=== PATIENT | male | born 1970 | race Caucasian/White ===

== ENCOUNTER 2018-08-13 08:46 | Day surgery (SDC) | payer OTHER ==
[2018-08-12 13:39] VITALS: BMI 23.6
[2018-08-13] MEDS ORDERED: Lidocaine 1% PF 5 ML VIAL ONE (11:54)
[2018-08-13] MEDS ORDERED: Dexamethasone 20 MG/5 ML VIAL ONE (11:54)
[2018-08-13] MEDS ORDERED: PROPOFOL 200 MG/20 ML VIAL ONE (11:54)
[2018-08-13] MEDS ORDERED: Ondansetron PF 4 MG/2 ML Vial ONE (11:54)
[2018-08-13] MEDS ORDERED: Glycopyrrolate 0.2 MG/ML 5 ML SYRINGE ONE (11:54)
[2018-08-13] MEDS ORDERED: Bupivacaine/Epinephrine 0.25% 30 ML VIAL ONE (12:11)
[2018-08-13] MEDS ORDERED: Fentanyl 100 MCG/2 ML VIAL ONE ×3 (12:16→13:42)
[2018-08-13] MEDS ORDERED: Midazolam HCl 2 mg/2 ml Vial ONE (12:16)
[2018-08-13] MEDS ORDERED: Hydrocodone-Acetamin 15 ML UDCUP ONE (14:32)
--- NOTE | 2018-08-14 06:50 | OP ---
DATE OF PROCEDURE: 08/13/2018 PREOPERATIVE DIAGNOSIS: Uvular lesion. POSTOPERATIVE DIAGNOSIS: Primary squamous cell carcinoma of the uvula. PROCEDURES PERFORMED: 1. Uvulectomy. 2. Tonsillectomy. 3. Partial resection of the soft palate. 4. Direct laryngoscopy. PROCEDURE IN DETAIL: After consent was obtained, the patient was identified, brought to the operating room, and placed on the operating table in supine position. General endotracheal anesthesia was obtained. The patient underwent systematical positioning of systematic laryngoscopy and on examination of the oropharynx and oral cavity, the abnormality seemed to be limited just to the uvula and its junction at the soft palate. We then proceeded with making vertical incision in the soft palate, grasping the palate and retracting it anteriorly. We then, with a Douglas tip, transected approximately 0.5 cm margin from the lesion and transected the posterior aspect of the soft palate. We then connected that with the anterior portion and excised the tumor and sent it for histologic evaluation. In order to close the wound and have a more functional palate, we proceeded with removing the tonsils and a crescentic portion of the posterior tonsillar pillar mucosa. This allowed for recreation of the uvula and widened the pharyngeal passage. Hemostasis was then obtained. The area was infiltrated with Marcaine 0.25% with 1:100,000 epinephrine, and the patient was awakened and taken to recovery room in stable condition prior to discharge home. Job ID: [id number]
--- NOTE | 2018-08-14 18:51 | EKG ---
Test Reason : PREOP Blood Pressure : / mmHG Vent. Rate : 064 BPM Atrial Rate : 064 BPM P-R Int : 152 ms QRS Dur : 110 ms QT Int : 386 ms P-R-T Axes : 076 050 032 degrees QTc Int : 398 ms Sinus rhythm with Premature atrial complexes Otherwise normal ECG No previous ECGs available Confirmed by Nelly VANCE ([id number]) on 08/14/2018 6:51:01 PM Referred By: KHRIS Confirmed By:Nelly VANCE
== END 2018-08-13 15:26 | disposition home or self-care (01) ==
LOC: SDC 08:46
PROVIDERS: ATTEND Specialist
DX: C05.2 Malignant neoplasm of uvula (principal); J35.1 Hypertrophy of tonsils; E78.00 Pure hypercholesterolemia, unspecified; G40.909 Epilepsy, unspecified, not intractable, without status epilepticus; Z79.899 Other long term (current) drug therapy
CPT/HCPCS: 88304; 88305; 88331; 93005; 93010; 96374; J1100; J2001; J2250; J2405; J2704; J3010

== ENCOUNTER 2018-11-30 16:27 | Inpatient (IN) | payer OTHER ==
[2018-11-30] MEDS ORDERED: GASTROGRAFIN 30 ML BOT ONE (17:27)
[2018-11-30] MEDS ORDERED: Morphine 4 MG/ML VIAL ONE (22:45)
[2018-11-30] MEDS ORDERED: Clindamycin/D5W 600 mg/50 ml Premix Bag ONE (22:45)
[2018-11-30] MEDS ORDERED: Dexamethasone 10 MG/ML VIAL ONE (22:45)
[2018-11-30] MEDS ORDERED: Ondansetron PF 4 MG/2 ML Vial ONE (22:45)
[2018-11-30 23:02] LABS: Hemoglobin 10.8 g/dL (14.0-18.0); Mean Corpuscular HGB CONC 32.7 g/dL (32.0-36.0); Mean Corpuscular Hemoglobin 32.2 pg (27.0-31.0); Mean Corpuscular Volume 98.5 fL (78.0-98.0); Platelet Count 380 thou/uL (130-400); RBC Distribution Width 11.3 % (11.5-14.5); Red Blood Cell (RBC) Count 3.34 mill/uL (4.70-6.10)
[2018-11-30 23:21] LABS: ALT (SGPT) 27 U/L (8-55); AST (SGOT) 20 U/L (5-34); Albumin 3.5 g/dL (3.5-5.0); Alkaline Phosphatase 84 U/L (40-150); Anion Gap 13 mmol/L (10-20); BUN (Urea Nitrogen) 18 mg/dL (8.9-20.6); Bilirubin, Total 0.4 mg/dL (0.2-1.2); Calc. Creatinine Clearance 0 mL/min (70-130); Calcium 10.7 mg/dL (7.8-10.44); Carbon Dioxide 32 mmol/L (22-29); Chloride 92 mmol/L (98-107); Estimated GFR-MDRD Greater than 90; Globulin 4.6 g/dL (2.4-3.5); Glucose 120 mg/dL (70-105); Potassium 4.3 mmol/L (3.5-5.1); Protein, Total 8.1 g/dL (6.0-8.3); Sodium 133 mmol/L (136-145)
[2018-11-30 23:29] LABS: Hypochromia SLIGHT = 6-15 cells (100X) (0-5/hpf); Lymphocytes 10 % (21-51); MDiff Complete? YES; Monocytes 6 % (0-10); Neutrophil 84 % (42-75); Platelet Morphology Comment Appears Adequate
--- NOTE | 2018-11-30 23:59 | RAD ---
ABDOMEN ONE VIEW: History: Reposition of PEG tube. FINDINGS: Single frontal view of the upper abdomen shows contrast material within the stomach. Radiopaque nargis ter and balloon overlie the gastric body. There is no evidence of leakage of contrast. POS: [facility]
[2018-12-01] MEDS ORDERED: HYDROcodone/Acetaminophen 5/325 mg Tablet PO PRN ×2 (04:04)
[2018-12-01] MEDS ORDERED: Acetaminophen 325 MG TAB PO PRN (04:04)
[2018-12-01] MEDS ORDERED: Ondansetron ODT 4 MG TAB SL PRN (04:04)
[2018-12-01] MEDS ORDERED: Ondansetron PF 4 MG/2 ML Vial IVP PRN ×2 (04:04→06:45)
[2018-12-01] MEDS ORDERED: Scopolamine 1.5 mg/72 hour Patch TOP SCH (05:00)
[2018-12-01] MEDS: Dextrose 5 %-0.45 % NaCl 1,000 ML IV SCH ×2 (05:02→16:43)
[2018-12-01] MEDS: Morphine 4 MG/ML VIAL SLOW IVP PRN ×4 (05:04→17:53)
[2018-12-01] MEDS ORDERED: Acetaminophen 650 MG/20.3 ML UDCUP PER TUBE PRN (06:45)
[2018-12-01] MEDS ORDERED: HYDROcodone/Acetaminophen 5/325 mg Tablet PER TUBE PRN (06:45)
[2018-12-01] MEDS ORDERED: hydrALAZINE 20 MG/ML VIAL SLOW IVP PRN (06:45)
[2018-12-01] MEDS ORDERED: Ondansetron ODT 4 MG TAB PER TUBE PRN (06:45)
--- NOTE | 2018-12-01 07:00 | HP ---
PRIMARY CARE PHYSICIAN: Dr. Silvestre Rajput in [place], [place]. ONCOLOGIST: Dr. Yovanny Langley. CUSTOMER SERVICE VOICE: Dr. Rock. CHIEF COMPLAINT: Severe pain in the throat and jaw, and left-sided ear pain. HISTORY OF PRESENT ILLNESS: Mr. Costello is a 48-year-old gentleman who initially was diagnosed with tongue cancer and then recently was found to have a tumor on the uvula and the tonsils and he is post uvulectomy. He has noticed increasing pain in his throat and jaw and he has been followed by Dr. Rock and Dr. Rock recommended that he come to the hospital for admission. He was concerned that the patient's airway may be becoming compromised and he was also concerned that the patient may have an infection in the throat due to odor from the patient's mouth. The patient currently is not able to add much to the history as he has difficulty with speech as a result of the swelling and enlargement of the tongue. He indicates pain primarily in the left ear and the left side of the neck. His mother, who was at the bedside, said he did have a low-grade temperature of 99.7 and noticed that he has been having some night sweats recently. He also had indicated some pain in his PEG tube, but that has actually improved since he has been in the hospital. He has had no nausea, no vomiting, and no diarrhea and essentially, the pain is localized to the head and neck region. No chest pain. No shortness of breath, etc. REVIEW OF SYSTEMS: All systems were reviewed and are negative except for that mentioned in the history of present illness. PAST MEDICAL HISTORY: Significant for tongue cancer and cancer of the uvula and the tonsils as well as seizures, mood disorder, and organic brain injury. PAST SURGICAL HISTORY: He has had a PEG tube placed in 11/12, MediPort placed and uvula and tonsils removed. ALLERGIES: TO PENICILLIN. HE AND THE MOTHER UNSURE WHAT THE REACTION IS. SOCIAL HISTORY: He is single. He has 1 child, who is estranged. He is a former smoker. He had smoked half a pack to a pack a day for at least 25 years. He also used to drink alcohol heavily, but has since quit and when asked about code status, he stated he would want to be a full code and he indicated this by nodding his head. FAMILY HISTORY: Significant for colon cancer in his grandmother. Mother has significant polyposis. CURRENT MEDICATIONS: Include; 1. Phenytoin 100 mg three times a day that is extended release. 2. Phenytoin 30 mg twice a day. 3. Atorvastatin 80 mg at bedtime. PHYSICAL EXAMINATION: GENERAL: He is alert and oriented to person, place, and time. He is well developed and well nourished. He does not appear to be in any acute distress. VITAL SIGNS: Blood pressure was 120/69, heart rate 96, respiratory rate of 18, and temperature is 97.7. HEENT: Pupils are equal, round, and reactive. Extraocular muscles are intact. Sclerae anicteric. Throat, he does have some enlargement of the tongue and some white plaque-like lesions on the tongue. Poor dentition. He did have some submandibular adenopathy. LUNGS: Clear to auscultation. There is no wheezing, no rales, no rhonchi. CARDIOVASCULAR: He has normal S1 and S2. There is no S3 or S4. No murmurs, clicks, or rubs. ABDOMEN: Soft. It is nontender and nondistended. Positive for bowel sounds. No rebound, no guarding. EXTREMITIES: There is no clubbing, cyanosis, no edema. NEUROLOGIC: The exam is grossly nonfocal. LAB RESULTS: White blood cell count 13, hemoglobin 10.8, hematocrit is 32.9, and platelet count is 380. Sodium 133, potassium 4.3, chloride is 92, CO2 is 32, BUN of 18, creatinine 0.78, glucose is 120, and calcium is 10.7. ASSESSMENT AND PLAN: 1. This is a 48-year-old gentleman who presents with worsening pain in his throat with concern for possible impingement on his airway and there is also concern for possible oropharyngeal infection. On exam, there was no stridor and he appears to be breathing comfortably. We will go ahead and place him in observation. Continue IV antibiotics and clindamycin, seems reasonable given the location. Continue IV Decadron and Dr. Rock will be consulted for further recommendations going forward. 2. For seizure disorder, continue his Dilantin as ordered as well as seizure precautions and IV Ativan will be available and he will be placed on deep venous thrombosis and gastrointestinal prophylaxis. Job ID: [id number]
[2018-12-01] MEDS: Clindamycin/D5W 600 MG in Premix Bag 1 BAG IVPB SCH ×3 (09:01→20:34)
[2018-12-01] MEDS: Pantoprazole 40 MG VIAL IVP SCH (09:05)
[2018-12-01] MEDS: Enoxaparin Sodium 40 MG/0.4 ML SYRINGE SC SCH (09:07)
[2018-12-01 10:14] LABS: #Lymphocytes 0.5 thou/uL (1.20-3.40); #Monocytes 0.2 thou/uL (0.11-0.59); #Neutrophils 9.5 thou/uL (1.40-6.50); %Basophils 0.1 % (0.0-1.0); %Eosinophils 0.1 % (0.0-10.0); %Lymphocytes 5.3 % (21.0-51.0); %Monocytes 2.1 % (0.0-10.0); %Neutrophils 92.5 % (42.0-75.0); Hemoglobin 10.5 g/dL (14.0-18.0); Mean Corpuscular HGB CONC 32.4 g/dL (32.0-36.0); Mean Corpuscular Hemoglobin 31.7 pg (27.0-31.0); Mean Corpuscular Volume 97.9 fL (78.0-98.0); Mean Platelet Volume 6.2 fL (7.4-10.4); Platelet Count 391 thou/uL (130-400); RBC Distribution Width 11.2 % (11.5-14.5); Red Blood Cell (RBC) Count 3.33 mill/uL (4.70-6.10); White Blood Cell (WBC) Count 10.3 thou/uL (4.8-10.8)
[2018-12-01 10:33] LABS: Anion Gap 15 mmol/L (10-20); BUN (Urea Nitrogen) 19 mg/dL (8.9-20.6); Calc. Creatinine Clearance 109 mL/min (70-130); Calcium 10.5 mg/dL (7.8-10.44); Carbon Dioxide 29 mmol/L (22-29); Chloride 95 mmol/L (98-107); Estimated GFR-MDRD Greater than 90; Glucose 154 mg/dL (70-105); Potassium 4.4 mmol/L (3.5-5.1); Sodium 135 mmol/L (136-145)
--- NOTE | 2018-12-01 17:41 | PRG ---
DATE OF SERVICE: 12/01/2018 SUBJECTIVE: Mr. Costello is an unfortunate 48-year-old male with past medical history significant for recently diagnosed squamous cell carcinoma of the tongue and uvula, status post uvulectomy, tonsillectomy, and pharyngeal reconstruction in August of 2018. He has presented to the hospital at the behest of his oncologist, Dr. Yovanny Langley, who saw him in Outpatient Clinic yesterday , and was concerned about soft tissue swelling possibly compromising his airway along with possible infections in his mouth. The patient has been admitted, and was seen by Dr. Rock's PA this morning. The plan is for trach placement tomorrow. The patient at this time continues to complain of chronic pain in his mouth and tongue, however, this is non-worsening. He denies any fever or chills at this time. His mother is at bedside and does provide some of the history, who states that his present condition has remained fairly stable over the past 2 weeks regarding the sores in his mouth. He does have a PEG tube, which she reports he has no pain from this morning. The patient denies chest pain and shortness of breath as well. OBJECTIVE: VITAL SIGNS: Blood pressure 129/74, temperature is 96.6, pulse is 84, respirations are 20, O2 saturation is 96%. GENERAL: This is a very thin male, resting in bed. He is in no respiratory or acute distress at this time. He is alert and oriented x3. HEENT: His head is atraumatic and normocephalic. Upon examination of his mouth , he does have some enlargement of his tongue as well as some plaque like white lesions. Submandibular lymphadenopathy is noted as well. LUNGS: Regular respiratory rate and pattern. Clear to auscultation bilaterally. CV: S1 and S2. Regular rate and rhythm. No appreciable murmurs, rubs, or gallops. ABDOMEN: Soft and nontender. PEG tube is present with sutures in place. EXTREMITIES: There is no edema. +2 DP pulses bilaterally. NEUROLOGIC: The patient is nonfocal. LABORATORY RESULTS: White blood cell count 10.3, hemoglobin 10.5, hematocrit 32.6. Sodium 135, potassium 4.4, creatinine 0.79, calcium 10.5. Liver function tests within normal limits. ASSESSMENT: 1. Squamous cell carcinoma of the tongue and uvula, status post uvulectomy, tonsillectomy, and soft palate reconstruction in August of [address] Rock, currently undergoing radiation. 2. Soft tissue swelling of the tongue and pharynx secondary to above with some concern for infection as well as airway compromise. 3. Seizure disorder, stable. 4. Hyperlipidemia. PLAN: At this time, we will continue empiric IV antibiotic coverage with clindamycin IV. The patient at this time appears nontoxic. He is afebrile. He has no white count. N p.o. after midnight for trach placement tomorrow. We will await further recommendations from his ENT physician as well as his oncologist. Care discussed with Dr. More. Job ID: [id number] [facility]ITAL[facility]
[2018-12-01] MEDS: HYDROcodone/Acetaminophen 5/325 mg Tablet PER TUBE PRN (20:33)
[2018-12-01] MEDS: Atorvastatin Calcium 40 MG TAB PER TUBE SCH (20:34)
--- NOTE | 2018-12-01 22:32 | PRG ---
DATE OF SERVICE: SUBJECTIVE: Mr. Costello presented to the emergency room yesterday at the instruction of Dr. Langley at [facility] and came consulting with Dr. Rock. The patient is in need of a tracheostomy to continue with cancer treatments, but there was fear that there was a slight throat infection that needed to be treated. Mr. Costello therefore checked himself through the ER and was admitted to the cancer unit where he has been receiving both IV clindamycin and steroids. Overall, he is doing okay. He has been n.p.o. since arriving while awaiting to see when the tracheotomy could be performed. OBJECTIVE: Mr. Costello is well developed, well nourished. He is in no acute distress. He is still having some difficulty swallowing secondary to the cancer in his tongue. PEG tube is in place. Continues to receive IV antibiotics and steroids. ASSESSMENT: 1. Tracheal infection. 2. Carcinoma of the tongue. PLAN: 1. The patient is okay to eat right now, but needs to be n.p.o. after midnight. 2. Continue with IV antibiotics and steroids as directed by Dr. Rock. 3. Tracheotomy to be performed tomorrow, Friday, 12/02 in a.m. Job ID: [id number]
[2018-12-02] MEDS: Clindamycin/D5W 600 MG in Premix Bag 1 BAG IVPB SCH ×4 (01:57→20:14)
[2018-12-02] MEDS: Dextrose 5 %-0.45 % NaCl 1,000 ML IV SCH (01:57)
[2018-12-02] MEDS: Morphine 4 MG/ML VIAL SLOW IVP PRN ×3 (02:00→11:00)
[2018-12-02 05:09] LABS: #Eosinphils 0.1 thou/uL (0.0-0.7); #Lymphocytes 1.3 thou/uL (1.20-3.40); #Monocytes 1.2 thou/uL (0.11-0.59); #Neutrophils 11.3 thou/uL (1.40-6.50); %Basophils 0.2 % (0.0-1.0); %Eosinophils 0.5 % (0.0-10.0); %Lymphocytes 9.1 % (21.0-51.0); %Monocytes 8.3 % (0.0-10.0); %Neutrophils 81.8 % (42.0-75.0); Hemoglobin 9.9 g/dL (14.0-18.0); Mean Corpuscular HGB CONC 32.7 g/dL (32.0-36.0); Mean Corpuscular Hemoglobin 32.3 pg (27.0-31.0); Mean Corpuscular Volume 98.9 fL (78.0-98.0); Mean Platelet Volume 6.6 fL (7.4-10.4); Platelet Count 399 thou/uL (130-400); RBC Distribution Width 11.2 % (11.5-14.5); Red Blood Cell (RBC) Count 3.05 mill/uL (4.70-6.10); White Blood Cell (WBC) Count 13.8 thou/uL (4.8-10.8)
[2018-12-02 05:15] LABS: Anion Gap 13 mmol/L (10-20); BUN (Urea Nitrogen) 20 mg/dL (8.9-20.6); Calc. Creatinine Clearance 132 mL/min (70-130); Calcium 9.9 mg/dL (7.8-10.44); Carbon Dioxide 33 mmol/L (22-29); Chloride 94 mmol/L (98-107); Estimated GFR-MDRD Greater than 90; Glucose 97 mg/dL (70-105); Potassium 3.9 mmol/L (3.5-5.1); Sodium 136 mmol/L (136-145)
[2018-12-02] MEDS ORDERED: Fentanyl 100 MCG/2 ML VIAL ONE (06:27)
[2018-12-02] MEDS ORDERED: Midazolam HCl 2 mg/2 ml Vial ONE (06:27)
[2018-12-02] MEDS ORDERED: Lidocaine 1% w/Epinephrine 1:100K 20 ML VIAL ONE (06:42)
[2018-12-02] MEDS ORDERED: Clindamycin/D5W 600 mg/50 ml Premix Bag ONE (06:54)
[2018-12-02] MEDS ORDERED: Lidocaine 4% PF 5 ML AMP NEB SCH (07:00)
[2018-12-02] MEDS ORDERED: Lidocaine 4% Topical Sol 50 ML BOT ONE (07:01)
[2018-12-02] MEDS ORDERED: Bupivacaine/Epinephrine 0.25% 30 ML VIAL ONE (07:21)
[2018-12-02] MEDS: Enoxaparin Sodium 40 MG/0.4 ML SYRINGE SC SCH (10:30)
--- NOTE | 2018-12-02 10:30 | OP ---
DATE OF PROCEDURE: 12/02/2018 PREOPERATIVE DIAGNOSES: 1. Upper airway obstruction. 2. Advanced anterior tongue cancer. POSTOPERATIVE DIAGNOSES: 1. Upper airway obstruction. 2. Advanced anterior tongue cancer. PROCEDURE PERFORMED: Tracheostomy. BRIEF HISTORY: Yasmany Costello is a 48-year-old gentleman with a history of uvular cancer and locally advanced tongue cancer, who is currently having difficulty undergoing tolerating his radiation by Dr. Langley and due to upper airway obstruction, the request was made that we proceed with a tracheostomy to facilitate radiation therapy. PROCEDURE IN DETAIL: After consent was obtained, the patient was identified and brought to the OR and placed on the operating room table in supine position. General endotracheal anesthesia was obtained via a GlideScope and the patient was positioned for surgery. The neck was prepped and draped and extended and the area of an anticipated incision was infiltrated with 0.25% Marcaine with 1:100,000 epinephrine. We then delineated the topical anatomy and made an elliptical incision in the lower part of his neck and carried the skin incision through the skin, subcutaneous tissues, and platysma. Strap muscles were identified and divided in the midline as was the thyroid isthmus. Dissection then revealed the pretracheal plane. The thyroid rings were identified and the 3rd anterior tracheal ring space was delineated and then cauterized superficially. The trachea was then entered. An inferior-based flap was created and suture secured to the skin. The #6 tracheostomy tube was then placed easily and suture secured to the skin. The ventilating apparatus was connected to that and the cuff was inflated. We then put the tracheal collar on and awakened the patient and transferred him to the ICU, where he remained in stable condition prior to transfer to the floor. Job ID: [id number]
[2018-12-02] MEDS: Sodium Chloride 0.9% (PF) 10 ML VIAL FS PRN (10:55)
[2018-12-02] MEDS: Pantoprazole 40 MG VIAL IVP SCH (10:55)
--- NOTE | 2018-12-02 11:03 | CON ---
DATE OF CONSULTATION: 12/02/2018 SERVICE: Pulmonary Medicine. REASON FOR CONSULT: ICU patient. HISTORY OF PRESENT ILLNESS: The patient is a 48-year-old white male with past medical history significant for head and neck cancer. Because of advancing cancer, he was having a hard time with his breathing and swallowing. He underwent an elective tracheostomy. Previously, he had a PEG tube placed. He is currently in his usual state of health, recovering from the tracheostomy. He has some local inflammation and discomfort at the surgical sites including the PEG tube and the tracheostomy. Otherwise, he has no specific complaints. He denies any current fevers, chills, nausea, vomiting, or diarrhea. Previously, he was an observation patient, but because of the required inpatient procedure, he has been escalated to an inpatient. PAST MEDICAL HISTORY: 1. Squamous cell carcinoma of the tongue and uvula and tonsils. 2. Seizure disorder. 3. Mood disorder. PAST SURGICAL HISTORY: 1. PEG tube placed in 2006. 2. MediPort. 3. Tracheostomy, postop day 0. SOCIAL HISTORY: He has a remote history of smoking. He had a history of heavy alcohol abuse. Denies any street drugs. He has no exposure to chemicals, dust, asbestos, or tuberculosis. FAMILY HISTORY: Noncontributory. ALLERGIES: PENICILLIN. MEDICATIONS: List of his inpatient medications was reviewed. No specific updates were made. REVIEW OF SYSTEMS: General; head, ears, eyes, nose, and throat; cardiovascular; respiratory; GI; ; musculoskeletal; neurologic; and skin are negative except as mentioned in the HPI. PHYSICAL EXAMINATION: VITAL SIGNS: Afebrile, pulse 76, blood pressure 151/82, respirations 14, and saturation 99% on room air. GENERAL: The patient is awake and alert, in no apparent distress. HEENT: There is a fresh tracheostomy with dried blood there. Normocephalic, atraumatic. Sclerae are white. Conjunctivae are pink. LUNGS: Excellent air entry. Slightly prolonged expiratory phase, but no wheezing is present. Rhonchi is there, but clear with cough. HEART: Normal rate, regular. ABDOMEN: Soft, nontender, and nondistended. Bowel sounds are positive. MUSCULOSKELETAL: No cyanosis or clubbing. No pitting in bilateral lower extremities. NEUROLOGIC: Grossly nonfocal. LABORATORY DATA: WBC 13.8, hemoglobin 9.9, and platelets 399,000. Basic metabolic profile is essentially unremarkable with bicarb of 33. Previous liver function studies were unremarkable. Calcium 9.9 and downtrending. ASSESSMENT: 1. Squamous cell carcinoma of the head and neck. 2. Tracheostomy, postop day 0. 3. History of percutaneous endoscopic gastrostomy tube placement. DISCUSSION AND PLAN: The patient will be observed in the ICU for 24 hours. If he remains stable, he will be transitioned to the floor. As long as he remains in the ICU, Pulmonary will continue to follow. We will give him some gentle hydration. Tube feeds will be resumed. A routine tracheostomy care will be performed. 70 minutes have been devoted to this patient in various activities. I personally reviewed all imaging studies and laboratory data noted within this document. For fifty percent of this time, I was interacting with the patient at the bedside or coordinating care with the care team. For the remainder of the time I was immediately available to the patient in the hospital unit. Job ID: [id number] MTDD
[2018-12-02] MEDS ORDERED: Lidocaine 2% Jelly 5 ML TUBE ONE (11:11)
[2018-12-02] MEDS: D5 1/2 NS w/20 mEq KCL 1,000 ML IV SCH ×2 (11:55→23:37)
[2018-12-02] MEDS: HYDROcodone/Acetaminophen 5/325 mg Tablet PER TUBE PRN ×2 (12:41→22:37)
[2018-12-02] MEDS ORDERED: Ondansetron PF 4 MG/2 ML Vial ONE (16:29)
[2018-12-02] MEDS ORDERED: Lidocaine 1% PF 5 ML VIAL ONE (16:29)
[2018-12-02] MEDS ORDERED: PROPOFOL 200 MG/20 ML VIAL ONE (16:29)
[2018-12-02] MEDS ORDERED: Succinylcholine Chloride 20 MG/ML 10 ml SYRINGE FS ONE (16:29)
[2018-12-02] MEDS ORDERED: Dexamethasone 20 MG/5 ML VIAL ONE (16:29)
[2018-12-02] MEDS: Lorazepam 2 MG/ML VIAL SLOW IVP PRN (20:13)
[2018-12-02] MEDS: Atorvastatin Calcium 40 MG TAB PER TUBE SCH (20:16)
--- NOTE | 2018-12-02 20:47 | PRG ---
DATE OF SERVICE: 12/02/2018 SUBJECTIVE: Mr. Costello is a 48-year-old male with past medical history significant for recently diagnosed squamous cell carcinoma of the tongue and uvula, status post uvulectomy, tonsillectomy, and pharyngeal reconstruction in August 2018. He has presented to the hospital at the behest of his oncologist, Dr. Yovanny Langley, who saw me in outpatient clinic and was concerned about soft-tissue swelling compromising his airway along with possible oral infections. The patient is seen in the ICU this morning, status post tracheostomy with Dr. Rock. The patient is breathing very easily. He denies any pain or discomfort at this time. OBJECTIVE: VITAL SIGNS: Blood pressure 120/70; temperature is afebrile; pulse is 60s, sinus; O2 saturation is currently 97%. GENERAL: This is a very thin male, resting in bed in the ICU. He is in no respiratory distress. Alert and oriented x3. HEENT: His head is atraumatic and normocephalic. Upon examination of mouth, he has an enlargement of his tongue and some plaque-like white lesions. LYMPHATIC: Submandibular lymphadenopathy noted. LUNGS: Regular respiratory rate and pattern. Clear to auscultation bilaterally. CV: S1 and S2. Regular rate and rhythm. No appreciable murmurs, rubs, or gallops. ABDOMEN: Soft, nontender. PEG tube is in place. EXTREMITIES: No edema. +2 DP pulses bilaterally. NEUROLOGIC: Nonfocal. LABORATORY DATA: White blood cell count 13.8, hemoglobin 9.9, hematocrit 30.2, and platelets are 399. Sodium is 136, potassium 3.9, chloride 94, BUN is 20, creatinine 0.71, GFR greater than 90, glucose 97, calcium 9.9. ASSESSMENT: 1. Squamous cell carcinoma of the tongue and uvula, status post uvulectomy, tonsillectomy, and soft palate reconstruction in August [address] Rock. Currently, undergoing radiation. 2. Soft tissue swelling of the tongue and pharynx secondary to above, status post tracheostomy with Dr. Rock this morning. 3. Seizure disorder, stable. 4. Hyperlipidemia. PLAN: The patient will be monitored closely in ICU for the next 24 hours. Empiric antibiotic coverage is continuing. We will continue PEG feedings. We will continue gentle IV hydration. Continue routine tracheostomy care. Care discussed with Dr. More, who agrees with the above. Further recommendations based on hospital course. Job ID: [id number]
[2018-12-03] MEDS: Clindamycin/D5W 600 MG in Premix Bag 1 BAG IVPB SCH ×4 (01:06→20:41)
[2018-12-03] MEDS: Morphine 4 MG/ML VIAL SLOW IVP PRN ×2 (08:38→17:22)
[2018-12-03] MEDS: Sodium Chloride 0.9% (PF) 10 ML VIAL FS PRN (08:47)
[2018-12-03] MEDS: Pantoprazole 40 MG VIAL IVP SCH (08:47)
[2018-12-03] MEDS: Enoxaparin Sodium 40 MG/0.4 ML SYRINGE SC SCH (08:50)
[2018-12-03] MEDS ORDERED: Morphine 2 MG/ML SYRINGE SLOW IVP SCH (10:30)
[2018-12-03] MEDS: Lorazepam 2 MG/ML VIAL SLOW IVP PRN ×2 (14:13→21:36)
[2018-12-03] MEDS: D5 1/2 NS w/20 mEq KCL 1,000 ML IV SCH (14:42)
[2018-12-03] MEDS ORDERED: Scopolamine 1.5 mg/72 hour Patch TOP SCH (15:00)
[2018-12-03] MEDS ORDERED: D5 1/2 NS w/20 mEq KCL 1,000 ML IV SCH (16:31)
--- NOTE | 2018-12-03 16:52 | PRG ---
DATE OF SERVICE: 12/03/2018 SERVICE: Pulmonary Medicine. INTERVAL HISTORY: The patient is doing well from respiratory standpoint. Denies any current chest pain, fevers, chills, or shortness of breath. He has an increased sputum production. He is bringing up clear white sputum. Otherwise, there has been no interval change to his condition. He is tolerating tube feeds just fine at this point. His abdominal discomfort is much improved. PHYSICAL EXAMINATION: VITAL SIGNS: Afebrile, pulse 107, blood pressure 99/69, respirations 21, and saturation 96% on T-collar at 28% FiO2. GENERAL: The patient is awake and alert, in no apparent distress. LUNGS: Decent air entry. There are rhonchi present. No crackles, prolonged expiratory phase, or wheezing is appreciated. HEART: Normal rate and regular. ABDOMEN: Soft, nontender, and nondistended. Bowel sounds are positive. MUSCULOSKELETAL: No cyanosis or clubbing. No pitting in the bilateral lower extremities. NEUROLOGIC: Grossly nonfocal. ASSESSMENT: 1. Squamous cell carcinoma of the head and neck. 2. Tracheostomy, postop day #0. 3. History of percutaneous endoscopic gastrostomy tube. DISCUSSION AND PLAN: The patient is stable for transition out of the ICU back to the medical unit. Now, he has a Curry catheter in place. Scopolamine patch will be reinstituted. Since he is tolerating tube feeding, we will KVO his IV fluids. He is stable for transition out of the ICU to the intermediate care unit. Pulmonary will continue to follow. From a purely respiratory standpoint, he is stable for discharge from the hospital. Job ID: [id number]
--- NOTE | 2018-12-03 18:02 | PDOC.PN ---
- Subjective Encounter Start Date: 12/03/18 Encounter Start Time: 11:40 Pt seen dimitrios followup re: dyspnea. c/o pain at tracheostomy site. - Objective Resuscitation Status - Order Detail: 12/01/18 06:34 Resuscitation Status Routine Resuscitation Status: FULL: Full Resuscitation MAR Reviewed: Yes Vital Signs & Weight: Vital Signs (12 hours) Temp Pulse Resp Pulse Ox 12/03/18 14:32 107 H 21 H 12/03/18 13:00 99.1 F 12/03/18 11:02 91 24 H 12/03/18 08:00 96 12/03/18 07:19 93 19 Weight Admit Weight 149 lb 14.629 oz Weight 147 lb 11.355 oz Most Recent Monitor Data Heart Rate from ECG 123 NIBP 104/83 NIBP BP-Mean 90 Respiration from ECG 25 SpO2 100 I&O: 12/02/18 12/03/18 12/04/18 06:59 06:59 06:59 Intake Total 3932 1228 Output Total 3293 248 Balance 3934 -1459 -520 Result Diagrams: 12/02/18 03:41 12/02/18 03:41 EKG Reviewed by me: Yes (Tele: NSR) Phys Exam - Physical Examination Constitutional: NAD HEENT: moist MMs tracheostomy Respiratory: clear to auscultation bilateral Cardiovascular: RRR Gastrointestinal: soft Neurological: moves all 4 limbs Psychiatric: normal affect Dx/Plan (1) Dyspnea Code(s): R06.00 - DYSPNEA, UNSPECIFIED Status: Acute Comment: s/p elective tracheostomy (2) 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 Review of Systems - Review of Systems Respiratory: SOB with Excertion Cardiovascular: negative: chest pain, palpitations, orthopnea, paroxysmal nocturnal dyspnea, edema, light headedness Gastrointestinal: Other (Drooling). negative: Nausea, Vomiting, Abdominal Pain , Diarrhea, Constipation, Melena, Hematochezia - Medications/Allergies Allergies/Adverse Reactions: Allergies Allergy/AdvReac Type Severity Reaction Status Date / Time Penicillins Allergy Verified 12/01/18 05:42 Medications: Current Medications Acetaminophen (Tylenol Elixir) 650 mg PER TUBE Q4H PRN PRN Reason: Headache/Fever/Mild Pain (1-3) Last Admin: 12/02/18 22:18 Dose: 650 mg Hydrocodone Bitart/Acetaminophen ([place] 5/325) 1 tab PER TUBE Q4H PRN PRN Reason: Moderate Pain (4-6) Hydrocodone Bitart/Acetaminophen ([place] 5/325) 2 tab PER TUBE Q4H PRN PRN Reason: Severe Pain (7-10) Last Admin: 12/02/18 22:37 Dose: 2 tab Albuterol/Ipratropium (Duoneb) 3 ml NEB [id number] [facility] Last Admin: 12/03/18 14:32 Dose: 3 ml Atorvastatin Calcium (Lipitor) 80 mg PER TUBE HS [facility] Last Admin: 12/02/18 20:16 Dose: 80 mg Enoxaparin Sodium (Lovenox) 40 mg SC 0900 [facility] Last Admin: 12/03/18 08:50 Dose: 40 mg Hydralazine HCl (Apresoline) 10 mg SLOW IVP Q4H PRN PRN Reason: SBP > 180 and HR < 70 Clindamycin Phosphate/Dextrose (600 mg/ Device) 50 mls @ 100 mls/hr IVPB 0200, 0800,1400,2000 [facility] Last Admin: 12/03/18 14:01 Dose: 50 mls Cefazolin Sodium/Dextrose (Ancef) 50 mls @ 100 mls/hr IVPB 0400,1600 [facility] Last Admin: 12/03/18 17:18 Dose: 50 mls Potassium Chloride/Dextrose/Sod Cl (D5 1/2 Ns W/20 Meq Kcl) 1,000 mls @ 0 mls/ hr IV .Q0M [facility] Lorazepam (Ativan) 2 mg SLOW IVP Q2H PRN PRN Reason: Anxiety/Agitation Last Admin: 12/03/18 14:13 Dose: 2 mg Morphine Sulfate (Morphine) 2 mg SLOW IVP Q4H PRN PRN Reason: Moderate Pain (4-6) Last Admin: 12/03/18 17:22 Dose: 2 mg Ondansetron HCl (Zofran Odt) 4 mg PER TUBE Q6H PRN PRN Reason: Nausea/Vomiting Ondansetron HCl (Zofran) 4 mg IVP Q6H PRN PRN Reason: Nausea/Vomiting Pantoprazole Sodium (Protonix) 40 mg IVP DAILY [facility] Last Admin: 12/03/18 08:47 Dose: 40 mg Phenytoin Sodium (Dilantin) 100 mg PER TUBE TID [facility] Last Admin: 12/03/18 17:17 Dose: 100 mg Scopolamine (Transderm Scop) 1.5 mg TOP Q3D [facility] Last Admin: 12/03/18 17:19 Dose: 1.5 mg Sodium Chloride (Flush - Normal Saline) 10 ml IVF Q12HR [facility] Last Admin: 12/03/18 08:48 Dose: 10 ml Sodium Chloride (Flush - Normal Saline) 10 ml IVF PRN PRN PRN Reason: Saline Flush Last Admin: 12/01/18 05:04 Dose: 10 ml Sodium Chloride (Normal Saline Pf) 10 ml FS PRN PRN PRN Reason: RECONSTITUTION Last Admin: 12/03/18 08:47 Dose: 10 ml
[2018-12-03] MEDS: Atorvastatin Calcium 40 MG TAB PER TUBE SCH (21:36)
[2018-12-04] MEDS: Clindamycin/D5W 600 MG in Premix Bag 1 BAG IVPB SCH ×4 (02:23→20:18)
[2018-12-04] MEDS ORDERED: Clindamycin/D5W 600 mg/50 ml Premix Bag ONE (02:40)
[2018-12-04] MEDS: Lorazepam 2 MG/ML VIAL SLOW IVP PRN (04:36)
[2018-12-04 05:16] LABS: #Eosinphils 0.1 thou/uL (0.0-0.7); #Monocytes 1.2 thou/uL (0.11-0.59); #Neutrophils 12.3 thou/uL (1.40-6.50); %Basophils 0.1 % (0.0-1.0); %Eosinophils 0.5 % (0.0-10.0); %Lymphocytes 6.9 % (21.0-51.0); %Monocytes 8.1 % (0.0-10.0); %Neutrophils 84.4 % (42.0-75.0); Hemoglobin 10.3 g/dL (14.0-18.0); Mean Corpuscular HGB CONC 32.5 g/dL (32.0-36.0); Mean Corpuscular Hemoglobin 32.1 pg (27.0-31.0); Platelet Count 377 thou/uL (130-400); RBC Distribution Width 11.4 % (11.5-14.5); Red Blood Cell (RBC) Count 3.19 mill/uL (4.70-6.10); White Blood Cell (WBC) Count 14.6 thou/uL (4.8-10.8)
[2018-12-04 05:39] LABS: Anion Gap 11 mmol/L (10-20); BUN (Urea Nitrogen) 23 mg/dL (8.9-20.6); Calc. Creatinine Clearance 114 mL/min (70-130); Calcium 9.2 mg/dL (7.8-10.44); Carbon Dioxide 32 mmol/L (22-29); Chloride 95 mmol/L (98-107); Estimated GFR-MDRD Greater than 90; Glucose 127 mg/dL (70-105); Sodium 134 mmol/L (136-145)
[2018-12-04] MEDS: Enoxaparin Sodium 40 MG/0.4 ML SYRINGE SC SCH (10:03)
[2018-12-04] MEDS: Morphine 4 MG/ML VIAL SLOW IVP PRN (10:04)
[2018-12-04] MEDS: Pantoprazole 40 MG VIAL IVP SCH (10:04)
--- NOTE | 2018-12-04 14:06 | PRG ---
DATE OF SERVICE: 12/04/2018 SERVICE: Pulmonary Medicine. INTERVAL HISTORY: The patient is doing fine from a respiratory standpoint. His tracheal secretions are actually thinning out quite a bit and no longer have that brown/purulent color to them. He denies any current chest pain, fevers, or chills. He continues to have neck discomfort. He would like to go home as soon as possible. He has been up ambulating with Physical Therapy today. His strength is coming back to him and otherwise, he has no specific complaints. PHYSICAL EXAMINATION: VITAL SIGNS: Afebrile with a T-max of 99.9, pulse 111, blood pressure 104/72, respirations 21, saturation 97% on T-collar with 28% FiO2. GENERAL: The patient is awake and alert, in no apparent distress. LUNGS: Decent air entry. There is transmitted breath sounds in the lungs from the upper airway. No prolonged expiratory phase or wheezing is appreciated. HEART: Heart is tachycardic. Regular. ABDOMEN: Soft, nontender, and nondistended. Bowel sounds are positive. MUSCULOSKELETAL: No cyanosis or clubbing. No pitting in the bilateral lower extremities. NEUROLOGIC: Grossly nonfocal. LABORATORY DATA: WBC 14.6, hemoglobin 10.3, platelets 377,000. Sodium 134, chloride 195, bicarb 32. Basic metabolic profile is otherwise unremarkable. Calcium continues to trend downward to 9.2. ASSESSMENT: 1. Squamous cell carcinoma of the head and neck. 2. Tracheostomy, postop day #1. 3. History of percutaneous gastrostomy tube. 4. Tracheobronchitis. DISCUSSION AND PLAN: The patient is stable for transition home, provided that he has appropriate resources at home to take care of his tracheostomy. Pulmonary will continue to follow in this location but hopefully, he will be on his way out the door in short order. Any antibiotics can be directed. Lung issues can be discontinued after a total duration of 5 days. Job ID: [id number]
[2018-12-04 15:09] VITALS: BMI 21.2
[2018-12-04] MEDS: HYDROcodone/Acetaminophen 5/325 mg Tablet PER TUBE PRN (17:14)
[2018-12-04] MEDS ORDERED: Pancrelipase DR 12000 1 CAP FS PRN (17:59)
[2018-12-04] MEDS ORDERED: Sodium Bicarbonate Tab 325 MG TAB PER TUBE PRN (17:59)
--- NOTE | 2018-12-04 19:05 | PDOC.PN ---
- Subjective Encounter Start Date: 12/04/18 Encounter Start Time: 10:40 Pt seen for followup re: dyspnea. Feels better. - Objective Resuscitation Status - Order Detail: 12/01/18 06:34 Resuscitation Status Routine Resuscitation Status: FULL: Full Resuscitation Vital Signs & Weight: Vital Signs (12 hours) Temp Pulse Resp BP Pulse Ox 12/04/18 18:53 107 H 24 H 12/04/18 16:53 94 L 12/04/18 15:56 98.7 F 111 H 18 128/60 94 L 12/04/18 15:08 100 22 H 98 12/04/18 10:49 107 H 20 98 12/04/18 10:36 99.9 F H 12/04/18 07:45 94 24 H 98 12/04/18 07:31 92 L 12/04/18 07:09 99.6 F Weight Admit Weight 149 lb 14.629 oz Weight 147 lb 11.355 oz Most Recent Monitor Data Heart Rate from ECG 109 NIBP 102/62 NIBP BP-Mean 75 Respiration from ECG 21 SpO2 100 I&O: 12/03/18 12/04/18 12/05/18 06:59 06:59 06:59 Intake Total 1227 1350 1550 Output Total 2685 520 Balance -6731 930 7142 Result Diagrams: 12/04/18 04:46 12/04/18 04:46 Phys Exam - Physical Examination Constitutional: NAD oral lesions tracheostomy Respiratory: clear to auscultation bilateral Cardiovascular: RRR Gastrointestinal: soft Neurological: moves all 4 limbs Psychiatric: normal affect Dx/Plan (1) Dyspnea Code(s): R06.00 - DYSPNEA, UNSPECIFIED Status: Acute Comment: s/p elective tracheostomy, improving (2) 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 Review of Systems - Review of Systems Cardiovascular: negative: chest pain, palpitations, orthopnea, paroxysmal nocturnal dyspnea, edema, light headedness Gastrointestinal: negative: Nausea, Vomiting, Abdominal Pain, Diarrhea, Constipation, Melena, Hematochezia - Medications/Allergies Allergies/Adverse Reactions: Allergies Allergy/AdvReac Type Severity Reaction Status Date / Time Penicillins Allergy Verified 12/01/18 05:42 Medications: Current Medications Acetaminophen (Tylenol Elixir) 650 mg PER TUBE Q4H PRN PRN Reason: Headache/Fever/Mild Pain (1-3) Last Admin: 12/02/18 22:18 Dose: 650 mg Hydrocodone Bitart/Acetaminophen ([place] 5/325) 1 tab PER TUBE Q4H PRN PRN Reason: Moderate Pain (4-6) Hydrocodone Bitart/Acetaminophen ([place] 5/325) 2 tab PER TUBE Q4H PRN PRN Reason: Severe Pain (7-10) Last Admin: 12/04/18 17:14 Dose: 2 tab Albuterol/Ipratropium (Duoneb) 3 ml NEB [id number] [facility] Last Admin: 12/04/18 18:53 Dose: 3 ml Lipase/Protease/Amylase ([place] [id number]) 1 cap FS .PER PROTOCOL PRN PRN Reason: TUBE OCCLUSION PROTOCOL Atorvastatin Calcium (Lipitor) 80 mg PER TUBE HS [facility] Last Admin: 12/03/18 21:36 Dose: 80 mg Enoxaparin Sodium (Lovenox) 40 mg SC 0900 [facility] Last Admin: 12/04/18 10:03 Dose: 40 mg Hydralazine HCl (Apresoline) 10 mg SLOW IVP Q4H PRN PRN Reason: SBP > 180 and HR < 70 Clindamycin Phosphate/Dextrose (600 mg/ Device) 50 mls @ 100 mls/hr IVPB 0200, 0800,1400,2000 [facility] Last Admin: 12/04/18 14:00 Dose: Not Given Cefazolin Sodium/Dextrose (Ancef) 50 mls @ 100 mls/hr IVPB 0400,1600 [facility] Last Admin: 12/04/18 16:48 Dose: 50 mls Potassium Chloride/Dextrose/Sod Cl (D5 1/2 Ns W/20 Meq Kcl) 1,000 mls @ 0 mls/ hr IV .Q0M [facility] Last Admin: 12/04/18 05:49 Dose: 1,000 mls Ondansetron HCl (Zofran Odt) 4 mg PER TUBE Q6H PRN PRN Reason: Nausea/Vomiting Ondansetron HCl (Zofran) 4 mg IVP Q6H PRN PRN Reason: Nausea/Vomiting Pantoprazole Sodium (Protonix) 40 mg IVP DAILY [facility] Last Admin: 12/04/18 10:04 Dose: 40 mg Phenytoin Sodium (Dilantin) 100 mg PER TUBE TID [facility] Last Admin: 12/04/18 18:01 Dose: Not Given Scopolamine (Transderm Scop) 1.5 mg TOP Q3D [facility] Last Admin: 12/03/18 17:19 Dose: 1.5 mg Sodium Bicarbonate (Bicarbonate, Sodium) 650 mg PER TUBE .PER PROTOCOL PRN PRN Reason: ENTERAL TUBE OCCLUSION Sodium Chloride (Flush - Normal Saline) 10 ml IVF Q12HR [facility] Last Admin: 12/04/18 10:04 Dose: 10 ml Sodium Chloride (Flush - Normal Saline) 10 ml IVF PRN PRN PRN Reason: Saline Flush Last Admin: 12/01/18 05:04 Dose: 10 ml Sodium Chloride (Normal Saline Pf) 10 ml FS PRN PRN PRN Reason: RECONSTITUTION Last Admin: 12/03/18 08:47 Dose: 10 ml
[2018-12-04] MEDS: Atorvastatin Calcium 40 MG TAB PER TUBE SCH (20:22)
[2018-12-04] MEDS ORDERED: Scopolamine 1.5 mg/72 hour Patch TOP SCH (23:15)
[2018-12-05] MEDS: HYDROcodone/Acetaminophen 5/325 mg Tablet PER TUBE PRN ×2 (01:57→06:29)
[2018-12-05] MEDS: Clindamycin/D5W 600 MG in Premix Bag 1 BAG IVPB SCH ×4 (02:30→20:58)
[2018-12-05 05:23] LABS: #Eosinphils 0.1 thou/uL (0.0-0.7); #Lymphocytes 0.9 thou/uL (1.20-3.40); #Monocytes 0.7 thou/uL (0.11-0.59); #Neutrophils 11.6 thou/uL (1.40-6.50); %Basophils 0.2 % (0.0-1.0); %Neutrophils 86.7 % (42.0-75.0); Hemoglobin 10.3 g/dL (14.0-18.0); Mean Corpuscular HGB CONC 32.6 g/dL (32.0-36.0); Mean Corpuscular Hemoglobin 31.7 pg (27.0-31.0); Mean Corpuscular Volume 97.2 fL (78.0-98.0); Platelet Count 385 thou/uL (130-400); RBC Distribution Width 11.3 % (11.5-14.5); Red Blood Cell (RBC) Count 3.26 mill/uL (4.70-6.10); White Blood Cell (WBC) Count 13.4 thou/uL (4.8-10.8)
[2018-12-05 05:39] LABS: Anion Gap 12 mmol/L (10-20); BUN (Urea Nitrogen) 20 mg/dL (8.9-20.6); Calc. Creatinine Clearance 123 mL/min (70-130); Calcium 9.8 mg/dL (7.8-10.44); Carbon Dioxide 31 mmol/L (22-29); Chloride 97 mmol/L (98-107); Estimated GFR-MDRD Greater than 90; Glucose 131 mg/dL (70-105); Potassium 4.5 mmol/L (3.5-5.1); Sodium 135 mmol/L (136-145)
[2018-12-05] MEDS: Pantoprazole 40 MG VIAL IVP SCH (08:40)
[2018-12-05] MEDS: Enoxaparin Sodium 40 MG/0.4 ML SYRINGE SC SCH (08:40)
[2018-12-05] MEDS ORDERED: Acetaminophen/Codeine 30-300mg Tablet PER TUBE PRN (11:23)
[2018-12-05] MEDS ORDERED: traMADol HCl 50 MG TAB PER TUBE PRN ×2 (11:24)
--- NOTE | 2018-12-05 11:30 | PDOC.PN ---
- Subjective Encounter Start Date: 12/05/18 Encounter Start Time: 07:40 Pt seen for followup re: dyspnea. c/o pain at surgical site. - Objective Resuscitation Status - Order Detail: 12/01/18 06:34 Resuscitation Status Routine Resuscitation Status: FULL: Full Resuscitation Vital Signs & Weight: Vital Signs (12 hours) Temp Pulse Resp BP BP Pulse Ox 12/05/18 11:10 98.7 F 88 20 120/79 96 12/05/18 08:02 100 12/05/18 07:58 86 16 12/05/18 07:43 98.0 F 87 20 110/65 98 12/05/18 04:00 98.2 F 86 20 102/58 L 98 12/05/18 01:30 97 18 99 Weight Admit Weight 149 lb 14.629 oz Weight 152 lb Most Recent Monitor Data Heart Rate from ECG 109 NIBP 102/62 NIBP BP-Mean 75 Respiration from ECG 21 SpO2 100 I&O: 12/04/18 12/05/18 12/06/18 06:59 06:59 06:59 Intake Total 1350 3150 720 Output Total 520 1100 Balance 830 2050 720 Result Diagrams: 12/05/18 05:11 12/05/18 05:11 Phys Exam - Physical Examination Constitutional: NAD HEENT: moist MMs Neck: supple tracheostomy Respiratory: clear to auscultation bilateral Cardiovascular: RRR G-tube Neurological: moves all 4 limbs Psychiatric: normal affect Dx/Plan (1) Dyspnea Code(s): R06.00 - DYSPNEA, UNSPECIFIED Status: Acute Comment: Improved after tracheostomy (2) 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 add PRN tylenol #3, tramadol and toradol. Review of Systems - Review of Systems Cardiovascular: negative: chest pain, palpitations, orthopnea, paroxysmal nocturnal dyspnea, edema, light headedness Gastrointestinal: negative: Nausea, Vomiting, Abdominal Pain, Diarrhea, Constipation, Melena, Hematochezia Musculoskeletal: Neck Pain - Medications/Allergies Allergies/Adverse Reactions: Allergies Allergy/AdvReac Type Severity Reaction Status Date / Time Penicillins Allergy Verified 12/01/18 05:42 Medications: Current Medications Acetaminophen (Tylenol Elixir) 650 mg PER TUBE Q4H PRN PRN Reason: Headache/Fever/Mild Pain (1-3) Last Admin: 12/02/18 22:18 Dose: 650 mg Acetaminophen/Codeine Phosphate (Tylenol #3) 1 tab PER TUBE Q6H PRN PRN Reason: Pain Acetaminophen/Codeine Phosphate (Tylenol #3) 2 tab PER TUBE Q6H PRN PRN Reason: Pain Albuterol/Ipratropium (Duoneb) 3 ml NEB [id number] [facility] Last Admin: 12/05/18 07:58 Dose: 3 ml Lipase/Protease/Amylase ([place] [id number]) 1 cap FS .PER PROTOCOL PRN PRN Reason: TUBE OCCLUSION PROTOCOL Atorvastatin Calcium (Lipitor) 80 mg PER TUBE HS [facility] Last Admin: 12/04/18 20:22 Dose: 80 mg Enoxaparin Sodium (Lovenox) 40 mg SC 0900 [facility] Last Admin: 12/05/18 08:40 Dose: 40 mg Hydralazine HCl (Apresoline) 10 mg SLOW IVP Q4H PRN PRN Reason: SBP > 180 and HR < 70 Clindamycin Phosphate/Dextrose (600 mg/ Device) 50 mls @ 100 mls/hr IVPB 0200, 0800,1400,2000 [facility] Last Admin: 12/05/18 08:39 Dose: 50 mls Cefazolin Sodium/Dextrose (Ancef) 50 mls @ 100 mls/hr IVPB 0400,1600 [facility] Last Admin: 12/05/18 04:00 Dose: 50 mls Potassium Chloride/Dextrose/Sod Cl (D5 1/2 Ns W/20 Meq Kcl) 1,000 mls @ 0 mls/ hr IV .Q0M [facility] Last Admin: 12/04/18 05:49 Dose: 1,000 mls Ketorolac Tromethamine (Toradol) 30 mg IVP ONE [facility] Stop: 12/10/18 11:31 Ketorolac Tromethamine (Toradol) 15 mg IVP Q6H PRN PRN Reason: Pain Stop: 12/10/18 11:25 Ondansetron HCl (Zofran Odt) 4 mg PER TUBE Q6H PRN PRN Reason: Nausea/Vomiting Ondansetron HCl (Zofran) 4 mg IVP Q6H PRN PRN Reason: Nausea/Vomiting Pantoprazole Sodium (Protonix) 40 mg IVP DAILY [facility] Last Admin: 12/05/18 08:40 Dose: 40 mg Phenytoin Sodium (Dilantin) 100 mg PER TUBE TID [facility] Last Admin: 12/05/18 08:39 Dose: 100 mg Scopolamine (Transderm Scop) 1.5 mg TOP Q3D [facility] Last Admin: 12/05/18 00:40 Dose: 1.5 mg Sodium Bicarbonate (Bicarbonate, Sodium) 650 mg PER TUBE .PER PROTOCOL PRN PRN Reason: ENTERAL TUBE OCCLUSION Sodium Chloride (Flush - Normal Saline) 10 ml IVF Q12HR [facility] Last Admin: 12/05/18 08:40 Dose: 10 ml Sodium Chloride (Flush - Normal Saline) 10 ml IVF PRN PRN PRN Reason: Saline Flush Last Admin: 12/01/18 05:04 Dose: 10 ml Sodium Chloride (Normal Saline Pf) 10 ml FS PRN PRN PRN Reason: RECONSTITUTION Last Admin: 12/03/18 08:47 Dose: 10 ml Tramadol HCl (Ultram) 50 mg PER TUBE Q6H PRN PRN Reason: Pain Tramadol HCl (Ultram) 100 mg PER TUBE Q6H PRN PRN Reason: Pain
[2018-12-05] MEDS ORDERED: Ketorolac Tromethamine 30 MG/ML VIAL IVP SCH (12:00)
--- NOTE | 2018-12-05 17:51 | PRG ---
DATE OF SERVICE: 12/05/2018 SERVICE: Pulmonary Medicine. INTERVAL HISTORY: The patient is doing great from a respiratory standpoint. He is on 28% FiO2 via T-collar. Otherwise, there has been no interval change to his condition. He is breathing comfortably. He has no specific complaints currently. He is hopeful of about getting to go home tomorrow. Most of his supplies are set up at home. He is yet to get a humidifier. PHYSICAL EXAMINATION: VITAL SIGNS: Afebrile, pulse 88, blood pressure 116/67, respirations 20, and saturation 98% on 28% FiO2 via T-collar. HEENT: Normocephalic and atraumatic. Sclerae are white. Conjunctivae are pink. Oral mucosa is moist and without lesions. LUNGS: Excellent air entry. Rhonchi are dramatically improving. No crackles are present dependently. HEART: Normal rate regular. ABDOMEN: Soft, nontender, and nondistended. Bowel sounds are positive. MUSCULOSKELETAL: No cyanosis or clubbing. No pitting in the bilateral lower extremities. NEUROLOGIC: Grossly nonfocal. LABORATORY DATA: WBC 13.4, hemoglobin 10.3, and platelets 385,000. Sodium 135 and up trending. Basic metabolic profile is otherwise unremarkable. ASSESSMENT: 1. Squamous cell carcinoma of the head and neck. 2. Tracheostomy, postop day #2. 3. History of PEG tube placement. 4. Tracheobronchitis. DISCUSSION AND PLAN: The patient is stable for transition home. At this point, he has no further requirements for inpatient Pulmonary or Critical Care opinion. It would be reasonable to set him up with a home humidifier, so that he can keep from plugging up his tracheostomy, particularly while sleeping. At this point, he has no further requirements for inpatient Pulmonary Critical Care opinion, and I will sign off. Please call with additional questions or concerns through time. Job ID: [id number]
[2018-12-05] MEDS: Ketorolac Tromethamine 30 MG/ML VIAL IVP PRN (18:33)
[2018-12-05] MEDS: Atorvastatin Calcium 40 MG TAB PER TUBE SCH (20:58)
[2018-12-05] MEDS: Acetaminophen/Codeine 30-300mg Tablet PER TUBE PRN (21:04)
[2018-12-06] MEDS: Clindamycin/D5W 600 MG in Premix Bag 1 BAG IVPB SCH ×2 (01:20→09:16)
[2018-12-06] MEDS: Ketorolac Tromethamine 30 MG/ML VIAL IVP PRN ×2 (03:46→09:16)
[2018-12-06 04:21] LABS: #Eosinphils 0.1 thou/uL (0.0-0.7); #Lymphocytes 0.9 thou/uL (1.20-3.40); #Monocytes 0.8 thou/uL (0.11-0.59); #Neutrophils 8.7 thou/uL (1.40-6.50); %Basophils 0.3 % (0.0-1.0); %Eosinophils 1.4 % (0.0-10.0); %Lymphocytes 8.6 % (21.0-51.0); %Monocytes 7.9 % (0.0-10.0); %Neutrophils 81.9 % (42.0-75.0); Mean Corpuscular HGB CONC 32.8 g/dL (32.0-36.0); Mean Corpuscular Volume 97.7 fL (78.0-98.0); Mean Platelet Volume 5.9 fL (7.4-10.4); Platelet Count 405 thou/uL (130-400); RBC Distribution Width 11.3 % (11.5-14.5); Red Blood Cell (RBC) Count 3.12 mill/uL (4.70-6.10); White Blood Cell (WBC) Count 10.6 thou/uL (4.8-10.8)
[2018-12-06 04:38] LABS: Anion Gap 12 mmol/L (10-20); BUN (Urea Nitrogen) 22 mg/dL (8.9-20.6); Calc. Creatinine Clearance 128 mL/min (70-130); Calcium 9.7 mg/dL (7.8-10.44); Carbon Dioxide 31 mmol/L (22-29); Chloride 98 mmol/L (98-107); Estimated GFR-MDRD Greater than 90; Glucose 98 mg/dL (70-105); Potassium 4.4 mmol/L (3.5-5.1); Sodium 137 mmol/L (136-145)
[2018-12-06] MEDS: Enoxaparin Sodium 40 MG/0.4 ML SYRINGE SC SCH (09:16)
[2018-12-06] MEDS: Pantoprazole 40 MG VIAL IVP SCH (09:16)
[2018-12-06] MEDS: Acetaminophen/Codeine 30-300mg Tablet PER TUBE PRN (09:30)
[2018-12-06 10:44] VITALS: BP 112/72; TEMP 97.5
--- NOTE | 2018-12-06 11:52 | RAD ---
KUB AND UPRIGHT: Date: 12/06/18 HISTORY: Abdominal pain. FINDINGS: There is air in both small and large bowel without signs of obstruction. Contrast is present within t he colon. No radiopaque calculi visualized. There is what appears to be a gastrostomy tube present in the antrum region of the stomach. IMPRESSION: No signs of obstruction or free air. POS: [facility]
--- NOTE | 2018-12-06 22:00 | PRG ---
DATE OF SERVICE: SUBJECTIVE: Mr. Costello continues to be in tracheotomy. He is doing well. Overall, he is receiving his training on how to care for the trach. He is currently on some oxygen, though there is no clear reason as to why. He was up and walking around when I came by to see him. OBJECTIVE: GENERAL: The patient is well-developed, well-nourished. He is in no acute distress at this time. VITAL SIGNS: Stable. HEENT: The trach tube is in place. There is no sign of infection. He appears overall to be doing well. ASSESSMENT: 1. Post tracheotomy placement. 2. Squamous cell carcinoma of the tongue. PLAN: 1. The patient is going to be moved to telemetry. 2. He will continue to receive tracheotomy care every shift and preparation for discharge on Friday. 3. Discharge plan for Friday to continue radiation treatments in [place] on Friday. Job ID: [id number]
--- NOTE | 2018-12-07 08:23 | DIS ---
DATE OF ADMISSION: 12/01/2018 DATE OF DISCHARGE: 12/06/2018 PRIMARY CARE PROVIDER: Dr. Silvestre Cormier. DISCHARGE DIAGNOSES: 1. Upper airway obstruction. 2. Advanced oral cancer. CONSULTATIONS DURING THIS HOSPITALIZATION: 1. Pulmonology, Dr. Alas. 2. ENT, Dr. Rock. PROCEDURES DURING THIS HOSPITALIZATION: Tracheostomy on December 02, 2018. CONDITION OF PATIENT ON THE DAY OF DISCHARGE: I assessed Mr. Costello on the day of discharge. He denies any chest pain or shortness of breath. Vital signs are stable. S1 and S2 are heard, regular. Lungs are clear to auscultation bilaterally. DISCHARGE MEDICATIONS: Lortab and Xanax as prescribed by ENT Service. He is also being discharged on atorvastatin 80 mg at bedtime; phenytoin 100 mg three times a day and 30 mg two times a day; docusate 100 mg two times a day; scopolamine patch topically every three days, 1.5 mg strength. HOSPITAL COURSE: Mr. Costello is a pleasant 48-year-old gentleman, who was admitted to [facility] for advanced oral cancer, resulting in upper airway obstruction. He was seen by ENT Service. He underwent tracheostomy on December 02, 2018. He was also seen by Pulmonology Service. He was initially treated with antibiotics, which were subsequently stopped. Arrangements are being made for home health prior to discharge. Many thanks for allowing me to participate in your patient's care. Please feel free to contact me with any questions or concerns. LABORATORY DATA: On the day of discharge, Mr. Costello has white count 10,600, hemoglobin 10, platelet count 405,000. Sodium 135, potassium 4.5, and creatinine 0.69. DISCHARGE DESTINATION: Home. TIME SPENT: Total amount of time spent coordinating this discharge: 32 minutes. Job ID: [id number]
== END 2018-12-06 16:37 | disposition home health service (06) | DRG 13 ==
LOC: ERS 16:27 → OBSVTOIN 12-01 03:56 → ONC 12-01 03:56 → CCU 12-02 07:55 → IMCU/EMU 12-03 15:45 → 2NO 12-04 15:23 → ONC 12-05 18:24
PROVIDERS: ADMIT Internal Medicine; ATTEND Internal Medicine
PROC: 0B110F4 Bypass Trachea to Cutaneous with Tracheostomy Device, Open Approach (ICD-10-PCS; principal; 2018-12-02)
DX: C02.3 Malignant neoplasm of anterior two-thirds of tongue, part unspecified (principal); C09.9 Malignant neoplasm of tonsil, unspecified; J40 Bronchitis, not specified as acute or chronic; G40.909 Epilepsy, unspecified, not intractable, without status epilepticus; E78.5 Hyperlipidemia, unspecified; R06.00 Dyspnea, unspecified; Z93.1 Gastrostomy status; Z90.49 Acquired absence of other specified parts of digestive tract; Z87.891 Personal history of nicotine dependence; Z88.0 Allergy status to penicillin
CPT/HCPCS: 36415; 74018; 74019; 80048; 80053; 85025; 90471; 90686; 94640; 96365; 96366; 96375; C9113; G0008; J0690; J1100; J1650; J1885; J2001; J2060; J2250; J2270; J2405; J2704; J3010; J3490; J7620; Q0162; Q9963